=== PATIENT | female | born 1975 | race African-American/Black ===

== ENCOUNTER 2021-04-07 18:41 | Emergency (ER) | payer MEDICAID, OTHER ==
[~2021-04-07] VITALS: Ht 165.1 cm; Wt 82.0 kg
[2021-04-07] MEDS ORDERED: ASPIRIN 81MG TABLET PO ONE (21:15)
[2021-04-07 21:29] LABS: BASOPHILS % 0.4 % (0.0-2.0); EOSINOPHILS % 0.3 % (0.0-5.0); HEMATOCRIT. 36.8 % (36.0-48.0); HEMOGLOBIN. 12.5 g/dL (12.0-16.0); MEAN CORPUSCULAR VOLUME 91.5 fL (81.0-99.0); MEAN PLATELET VOLUME 9.9 fl (7.4-10.4); MONOCYTES % 7.1 % (2.0-8.0); NEUTROPHILS % 72.2 % (40.0-76.0); PLATELET 183 x1000/uL (130-400); RED BLOOD CELL COUNT 4.02 mill/uL (4.2-5.4); RED CELL DISTRIBUTION WIDTH 15.8 % (11.6-14.6)
[2021-04-07 21:37] LABS: CHLORIDE 106 mEq/L (98-107)
[2021-04-08] MEDS ORDERED: IOHEXOL-350 100 ML BOTTLE ONE (00:01)
[2021-04-08] MEDS ORDERED: HYDRALAZINE 20MG/ML VIAL IV ONE (00:30)
[2021-04-08] MEDS ORDERED: KETOROLAC 15MG/ML VIAL IV ONE (02:15)
[2021-04-08 02:36] VITALS: BP 159/101
== END 2021-04-08 03:35 | disposition home or self-care (01) ==
LOC: ER 18:41
DX: R07.9 Chest pain, unspecified (principal); I10 Essential (primary) hypertension; Z90.710 Acquired absence of both cervix and uterus; Z98.890 Other specified postprocedural states
CPT/HCPCS: 36415; 71045; 71275; 80053; 83690; 83880; 84484; 84702; 85025; 85379; 93005; 96374; 96375; 99285; J0360; J1885; Q9967